=== PATIENT | female | born 1995 ===

== ENCOUNTER 2021-11-26 19:57 | Emergency (ER) | payer OTHER ==
[2021-11-26] MEDS ORDERED: Benztropine 1 MG Tab PO ONE (20:21)
[2021-11-26] MEDS ORDERED: diphenhydrAMINE 50 MG/ML SDV IVPUSH ONE (20:21)
[2021-11-26] MEDS ORDERED: Dextrose 5%-0.9% NaCl 1,000 ML IV SCH (20:30)
== END 2021-11-26 21:37 | disposition home or self-care (01) ==
LOC: JP.ED 19:57
DX: O99.891 Other specified diseases and conditions complicating pregnancy (principal); G24.02 Drug induced acute dystonia; Z3A.01 Less than 8 weeks gestation of pregnancy
CPT/HCPCS: 36415; 80048; 82550; 85025; 99283; 99284; A9270; J1200